=== PATIENT | male | born 1990 | race Caucasian/White ===

== ENCOUNTER 2018-05-23 13:29 | Emergency (ER) | payer OTHER ==
[~2018-05-23] VITALS: Ht 180.3 cm; Wt 81.6 kg
[2018-05-23 13:39] VITALS: Ht 180.3 cm; Wt 81.6 kg
[2018-05-23 13:58] VITALS: BP 114/67
[2018-05-23 14:04] LABS: BASOPHIL % 0.4 % (0-2); PLATELET COUNT 220 x10^3mcL (130-400); RED CELL DISTRIBUTION WIDTH 14.3 % (11.5-14.5)
[2018-05-23 14:09] LABS: CALCIUM 8.9 mg/dL (8.5-10.1); CARBON DIOXIDE 25.4 mmol/L (21-32); CHLORIDE SERUM 108 mmol/L (98-107); CREATININE SERUM 0.9 mg/dL (0.7-1.3); GFR1 > 60 mL/min; GLUCOSE SERUM 98 mg/dL (74-106); POTASSIUM SERUM 4.1 mmol/L (3.5-5.1); SODIUM SERUM 144 mmol/L (136-145)
[2018-05-23 14:13] LABS: ALBUMIN 3.7 g/dL (3.4-5.0); ALKALINE PHOSPHATASE 74 U/L (46-116); ALT/SGPT 21 U/L (16-63); AST/SGOT 15 U/L (15-37); BILIRUBIN TOTAL 0.28 mg/dL (0.20-1.00); CHOLESTEROL 86 mg/dL (<200)
== END 2018-05-23 15:22 | disposition left against medical advice (07) ==
LOC: ED 13:29 → EDBD 13:29 → ED 15:22
PROVIDERS: Specialist
DX: R41.82 Altered mental status, unspecified (principal)
CPT/HCPCS: G0480; J7030; Q0092